=== PATIENT | female | born 2000 | race Caucasian/White ===

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

== ENCOUNTER 2020-11-17 17:58 | Emergency (ER) | payer OTHER ==
[~2020-11-17] VITALS: Ht 157.5 cm; Wt 72.7 kg
[~2020-11-17 17:58] MED LIST changes: +KYLE19.5 IU
[2020-11-17 18:02] VITALS: BP 124/75
== END 2020-11-17 18:52 | disposition left against medical advice (07) ==
LOC: M ED 17:58
DX: Z53.21 Procedure and treatment not carried out due to patient leaving prior to being seen by health care provider (principal)

== ENCOUNTER 2021-05-13 13:18 | Emergency (ER) | payer OTHER ==
[~2021-05-13] VITALS: Ht 157.5 cm; Wt 79.1 kg
[2021-05-13] MEDS ORDERED: CARBAMIDE PEROXIDE 6.5% OTIC SOLN 15ML AD STA (14:34)
[2021-05-13] MEDS ORDERED: CIPR7.5D5 AD (15:42)
[2021-05-13] MEDS ORDERED: DEBR6.5S4 AD (15:42)
[2021-05-13 15:54] VITALS: BP 132/80
== END 2021-05-13 15:55 | disposition home or self-care (01) ==
LOC: M ED 13:18
DX: H60.91 Unspecified otitis externa, right ear (principal); H61.21 Impacted cerumen, right ear; Z97.5 Presence of (intrauterine) contraceptive device; Z88.0 Allergy status to penicillin

== ENCOUNTER 2021-06-21 19:25 | Emergency (ER) | payer OTHER ==
[~2021-06-21] VITALS: Ht 157.5 cm; Wt 73.6 kg
[2021-06-21 19:25] VITALS: BP 138/77
[~2021-06-21 19:25] MED LIST changes: +CIPR7.5D5 AD; +DEBR6.5S4 AD
[2021-06-21 22:03] LABS: RSV AMPLIFICATION NEGATIVE (NEGATIVE)
[2021-06-21] MEDS ORDERED: MUCI60TA7 PO (22:30)
[2021-06-21 23:18] LABS: MONO SCRN NEGATIVE (NEGATIVE)
== END 2021-06-21 22:46 | disposition home or self-care (01) ==
LOC: M ED 19:25
DX: J06.9 Acute upper respiratory infection, unspecified (principal); B34.8 Other viral infections of unspecified site; Z88.0 Allergy status to penicillin; Z97.5 Presence of (intrauterine) contraceptive device